=== PATIENT | male | born 1945 | race Caucasian/White ===

== ENCOUNTER 2019-06-28 16:31 | Inpatient (IN) ==
[2019-06-28 17:19] LABS: BASO# 0.06 X1000 (0.0-0.2); BASO% 0.9 % (0.0-0.8); EOS# 0.23 X1000 (0.0-0.7); EOS% 3.3 % (0.0-10.0); HEMATOCRIT 33.2 % (42.0-52.0); HEMOGLOBIN 11.3 g/dL (14.0-18.0); IMM GRAN# 0.02 X1000 (0.0-0.04); IMM GRAN% 0.3 % (0.0-0.5); LYMPH# 1.53 X1000 (1.2-3.4); MCH 29.7 PG (27-31); MCV 87.4 FL (81-99); MONO% 10.1 % (1.7-9.3); MPV 9.9 FL (7.4-10.4); NEUT# 4.42 X1000 (1.4-6.5); NEUT% 63.4 % (42.2-75.2); PLT 188 X1000 (130-400); RDW 14.6 % (11.5-14.5); WBC 6.96 X1000 (4.8-10.8)
[2019-06-28] MEDS ORDERED: SODIUM BICARBONATE 8.4% IV ONE (18:35)
[2019-06-28] MEDS ORDERED: NS 1,000 ML IV ONE (18:35)
[2019-06-28] MEDS ORDERED: HUMULIN R IV ONE ×2 (18:35→23:05)
[2019-06-28] MEDS ORDERED: D50W SYRINGE IV ONE ×2 (18:35→23:05)
[2019-06-28 18:37] LABS: ALB/GLOB RATIO 1.5; ALBUMIN 4.7 g/dL (3.5-5.0); CALCIUM 10.1 mg/dL (8.8-10.2); CREATININE 2.6 mg/dL (0.7-1.2); POTASSIUM 6.9 mmol/L (3.5-5.1); TOTAL BILIRUBIN 0.39 mg/dL (0.20-1.00); TOTAL PROTEIN 7.9 g/dL (6.3-8.3)
[2019-06-28] MEDS ORDERED: ZOFRAN IV PRN (18:51)
--- NOTE | 2019-06-28 18:52 | PROVIDER DOCUMENTATION ---
This chart was entered by Tona Torres Scribe, acting as scribe for Tyron Ornelas MD. HPI-General Adult - General Chief Complaint: Abnormal Lab[s] Stated Complaint: HIGH POTASSIUM Time Seen by Provider: 06/28/19 17:19 Source: patient Allergies/Adverse Reactions: Patient Allergies Allergy/AdvReac Type Severity Reaction Status Date / Time No Known Allergies Allergy Verified 06/28/19 21:27 Home Medications: Home Medication List Medication Instructions Recorded Confirmed Last Taken Type Carvedilol 12.5 mg PO BID 03/16/18 06/28/19 06/28/19 09:00 History Simvastatin 40 mg PO QHS 03/16/18 06/28/19 06/27/19 21:00 History Hydromorphone [Dilaudid] 1 mg PO Q3H PRN PRN #12 tab 01/19/19 06/28/19 Unknown Rx Warfarin [Coumadin] 4 mg PO QHS 06/28/19 06/28/19 06/27/19 21:00 History - History of Present Illness -Gen Adult Nature of Presenting Problems: 74yom presents to ED cc potassium of 7.1 at PCP today and N/V on Thursday and diarrhea for 5 days. Pt denies fever, chest pain or SOB. Pt has hx of HTN, DM and has a pacemaker. Pt is afebrile and in no apparent distress upon exam. Location of Pain/Injury: reports: generalized Quality of Pain: reports: none Onset/Duration: reports: 5 days ago Timing: reports: still present Context/Activities at Onset: reports: light activity Modifying Factors: improves with: nothing Associated Symptoms: reports: diarrhea, fatigue, malaise, muscle aches, weakness , trouble walking. denies: chest pain, fever/chills, shortness of breath Similar Symptoms Previously?: Yes Recently seen or treated by another doctor?: Yes (seen at PCP today) Review of Systems - Adult - REVIEW OF SYSTEMS - ADULT Constitutional: reports: see tim MANZANARES. denies: chills, fever Eyes: reports: no symptoms reported Ears, Nose, Mouth & Throat: reports: no symptoms reported Cardiovascular: reports: see HPI, other (potassium of 7.1 at PCP today). denies: chest pain Respiratory: reports: see HPI. denies: shortness of breath Gastrointestinal: reports: see HPI, diarrhea, nausea, vomiting. denies: abdominal pain Genitourinary: reports: no symptoms reported Musculoskeletal: reports: no symptoms reported Integumentary: reports: no symptoms reported Neurological: reports: no symptoms reported Psychiatric: reports: no symptoms reported Endocrine: reports: no symptoms reported Hematologic/Lymphatic: reports: no symptoms reported Allergic/Immunologic: reports: no symptoms reported All Other Systems: Reviewed and Negative Past History - Adult - PAST MEDICAL HISTORY-ADULT Review of Records: reports: Nursing Assessment Review, Medications Reviewed, Social history reviewed & non-contributory. Major Childhood Illnesses: reports: denies history Cardiovascular: reports: cardiac disease, HTN, hyperlipidemia Respiratory: reports: denies history Gastrointestinal: reports: denies history Obstetrical/Gynecological: reports: denies history Genitourinary: reports: kidney disease Musculoskeletal: reports: denies history Neurological: reports: denies history Endocrine/Immune: reports: anemia, Diabetes Other Conditions: reports: denies history - PRIOR SURGERIES/PROCEDURES Surgical/Procedure History: reports: cholecystectomy, pacemaker, orthopedic (extremity), other (MVP) - IMMUNIZATION STATUS Childhood Immunizations: See Nurse Assessment Flu Vaccine: See Nurse Assessment - FAMILY HISTORY Family History: reviewed, not pertinent Physical Exam-General - PHYSICAL EXAM-ADULT Initial Vital Signs Reviewed: Yes - CONSTITUTIONAL General Appearance: appears well, alert, no apparent distress. negative: anxious, combative - EYES Eyes: PERRL/EOMI, pink conjunctivae. negative: photophobia - HEAD, EARS, NOSE, MOUTH & THROAT HENMT: normocephalic/atraumatic, moist mucous membranes. negative: angioedema - RESPIRATORY Respiratory: chest non-tender, lungs clear, normal breath sounds. negative: wheezing - CARDIOVASCULAR Cardiovascular: normal peripheral pulses, regular rate, rhythm. negative: bradycardia, tachycardia - GASTROINTESTINAL (ABDOMEN) Abdominal Exam: normal bowel sounds, non tender, soft. negative: tenderness - MUSCULOSKELETAL Extremity: swelling (trace-1+ BILATERAL LE). negative: deformity - SKIN Integumentary: warm/dry. negative: diaphoresis, jaundice - PSYCHIATRIC Psych/Mental Status: normal mood/affect, oriented x 3. negative: anxious, disheveled Progress - PLAN OF CARE/RESULTS Progress/Plan/Lab Results: Vital Signs - 8 hr 06/28/19 16:38 Temperature 98.0 F Pulse Rate 91 H Respiratory Rate 20 Blood Pressure 116/70 O2 Sat by Pulse Oximetry 99 Laboratory Results - last 24 hr 06/28/19 16:42 WBC 6.96 RBC 3.80 L Hgb 11.3 L Hct 33.2 L MCV 87.4 MCH 29.7 MCHC 34.0 RDW Std Deviation 14.6 H Plt Count 188 MPV 9.9 Immature Gran % (Auto) 0.3 Neut % (Auto) 63.4 Lymph % (Auto) 22.0 Yell % (Auto) 10.1 H Eos % (Auto) 3.3 Baso % (Auto) 0.9 H Immature Gran # (Auto) 0.02 Neut # (Auto) 4.42 Lymph # (Auto) 1.53 Yell # (Auto) 0.70 H Eos # (Auto) 0.23 Baso # (Auto) 0.06 Orders Category Date Time Status CBC WITH DIFF [HEME] Stat Lab 06/28/19 16:42 Completed COMPREHENSIVE METABOLIC PANEL [CHEM] Stat Lab 06/28/19 16:42 Received Result Diagrams: 06/29/19 03:30 06/29/19 03:30 - EKG 1 Time of EKG reading by physician:: 17:19 EKG Read and Signed by:: Tyron Ornelas EKG Interpretation (*Must complete 3 of following elements*): Abnormal Rate: 73 Rhythm: Ventricular paced rhythm QRS: PVC's (occasional) ST Wave: normal - CONSULTS/PCP/HOSPITALIST Notification #1 *Consult/PCP/Hospitalist*: penot Time Discussed: 18:41 Consult Disposition: Admit Departure - Departure Date of Disposition Decision: 06/28/19 Time of Disposition Decision: 18:43 DIAGNOSIS: Acute hyperkalemia, Elevated BUN Disposition: ADMITTED INPATIENT 09 Certified Medical Emergency: Emergent Condition: Stable - Critical Care Note This patient required my direct & personal management of CC.: No Attestation - Physician/ BRIDGETTE Attestation Patient care was provided by Advanced Practice Provider:: No The physician spent face to face time with patient:: Yes Advanced Practice Provider documentation review:: Supervising physician onsite and consulted in the evaluation and care of this patient. The physician did have a face to face encounter with the patient. This chart was documented by the perez souzaibe, (Tona Torres Scribe) and accurately reflects the services I performed and decisions made by me, Tyron Ornelas MD, as attested by the provider's signature.
[2019-06-28] MEDS ORDERED: CALCIUM GLUCONATE 1 GM in NS 100 ML IV ONE (18:53)
[2019-06-28] MEDS ORDERED: ALBUTEROL 0.5% INH CONC FOR HYPERKALEMIA INH ONE ×3 (18:57→23:03)
[2019-06-28] MEDS ORDERED: CALCIUM GLUCONATE 1 GM in NS 50 ML IV ONE ×2 (19:01→23:05)
[2019-06-28] MEDS: NS 1,000 ML IV SCH (20:12)
[2019-06-28] MEDS: LOKELMA POWDER PACKET PO SCH (20:21)
[2019-06-28 20:41] LABS: INR 3.61; PROTIME 37.1 Seconds (11.0-16.0)
[2019-06-28] MEDS ORDERED: DILAUDID IV PRN (22:05)
[2019-06-28] MEDS: HUMALOG SUBQ SCH (22:21)
[2019-06-28 22:58] LABS: ALBUMIN 4.1 g/dL (3.5-5.0); CALCIUM 9.9 mg/dL (8.8-10.2); CREATININE 2.3 mg/dL (0.7-1.2); PHOSPHORUS 4.3 mg/dL (2.7-4.5)
[2019-06-28 22:59] LABS: POTASSIUM 6.3 mmol/L (3.5-5.1)
[2019-06-28] MEDS ORDERED: COUMADIN PO SCH (23:00)
[2019-06-28] MEDS ORDERED: LOKELMA POWDER PACKET PO ONE (23:00)
[2019-06-28] MEDS ORDERED: SODIUM BICARBONATE 8.4% IV PUSH ONE (23:06)
[2019-06-28] MEDS: COREG PO SCH (23:43)
[2019-06-29 04:11] LABS: BASO# 0.01 X1000 (0.0-0.2); BASO% 0.2 % (0.0-0.8); EOS# 0.12 X1000 (0.0-0.7); EOS% 2.4 % (0.0-10.0); HEMATOCRIT 28.7 % (42.0-52.0); HEMOGLOBIN 9.6 g/dL (14.0-18.0); LYMPH# 0.87 X1000 (1.2-3.4); LYMPH% 17.4 % (20.5-51.1); MCH 29.2 PG (27-31); MCHC 33.4 g/dL (33-37); MCV 87.2 FL (81-99); MPV 9.7 FL (7.4-10.4); PLT 111 X1000 (130-400); RBC 3.29 XMIL (4.7-6.1); RDW 14.5 % (11.5-14.5)
[2019-06-29 04:12] LABS: INR 3.86; PROTIME 39.2 Seconds (11.0-16.0)
[2019-06-29 04:34] LABS: HEMOGLOBIN A1C 6.2 % (4.8-6.0)
[2019-06-29 04:38] LABS: ALBUMIN 3.8 g/dL (3.5-5.0); CALCIUM 9.8 mg/dL (8.8-10.2); CREATININE 2.3 mg/dL (0.7-1.2); POTASSIUM 5.3 mmol/L (3.5-5.1)
[2019-06-29] MEDS: NS 1,000 ML IV SCH (04:47)
[2019-06-29] MEDS: HUMALOG SUBQ SCH (06:21)
--- NOTE | 2019-06-29 08:30 | EKG Report ---
Test Performed on : 06/28/2019 4:50:23 PM Test Reason : ED. NO EKG ORDER FOR MUSE Blood Pressure : / mmHG Vent. Rate : 073 BPM Atrial Rate : 079 BPM P-R Int : 000 ms QRS Dur : 174 ms QT Int : 446 ms P-R-T Axes : 000 -86 056 degrees QTc Int : 491 ms Ventricular-paced rhythm with occasional premature ventricular complexes. Abnormal ECG When compared with ECG of 19-JAN-2019 11:12, Electronic ventricular pacemaker has replaced Wide QRS rhythm. Unconfirmed Result
[2019-06-29] MEDS: LOKELMA POWDER PACKET PO SCH (09:04)
[2019-06-29] MEDS: COREG PO SCH (09:04)
[2019-06-29 10:05] VITALS: BP 115/59
--- NOTE | 2019-06-29 16:43 | NEPHROLOGY CONSULTATION ---
DATE: 06/29/2019 REASON FOR ADMISSION: Abnormal labs. TIME SEEN: 0705. CONSULTING PHYSICIAN: Dr. Stewart per PREET Singer. REASON FOR CONSULTATION: Hyperkalemia with chronic kidney disease stage 3B/4. HISTORY OF PRESENT ILLNESS: Mr. Garg is a 74-year-old white male with a known history of heart disease, diabetes mellitus type 2, cirrhosis of the liver, and chronic atrial fibrillation with anticoagulation. The patient is followed by Dr. Razo. He had labs drawn yesterday a.m. He was requested to come back into her office for repeat labs. He presented to the [facility] emergency room. Potassium was down to 6.9 from 7.1. Creatinine was found to be 2.6 with a noted baseline of 1.9 to 2.1 in 2018. Due to these findings, patient was admitted to the ICU for further monitoring and evaluation. He was bolused with 1 L of normal saline. Continues with normal saline at 125 mL an hour. He was given 3 rounds of D50, insulin and calcium gluconate with sodium bicarbonate and a dose of Lokelma by primary care. The patient's potassium this a.m. is 5.3. BUN is now at 97 with a creatinine of 2.3. The patient admits that for the last week he has had nausea, vomiting, and diarrhea. He had continued to take his oral medications as prescribed. Unable to the eat except minimal amount of liquids per intake. He denies chest pain. No increased work of breathing. States his nausea has improved. He has slight abdominal discomfort from retching. Denies any lower extremity swelling. No recent falls. No fever or chills. PAST MEDICAL HISTORY: Chronic kidney disease stage 3B, baseline creatinine 1.9 to 2.8 since 2018, cirrhosis of the liver, coronary artery disease with coronary artery bypass graft, hypertension, diabetes mellitus type 2, atrial fibrillation, paroxysmal, chronic anemia due to chronic disease, followed by Dr. Cary, vitamin D deficiency, pacemaker, prosthetic mechanical heart valve, mitral, followed by Cardiology. PAST SURGICAL HISTORY: Coronary artery bypass graft, mechanical mitral valve replacement, pacemaker replacement. SOCIAL HISTORY: Lives with his family. States he quit smoking in 1975. Denies alcohol or illicit drug use currently. ALLERGIES: No known drug allergies listed. HOME MEDICATIONS: Furosemide 40 mg b.i.d., carvedilol 12.5 mg b.i.d., lisinopril 5 mg daily, simvastatin 40 mg p.o. at bedtime, Dilaudid tablet 2 mg q.3 to 4 hours p.r.n., Coumadin 4 mg p.o. at bedtime, followed by Cardiology. REVIEW OF SYSTEMS: Times 10 with pertinent positives listed above in the HPI. VITAL SIGNS: Most recent, temperature 97 degrees, blood pressure 100/48, heart rate 70, respirations 21. He is currently on room air. Last recorded saturation 98%. Patient has had 1645 in, 550 mL out to void. LABS: Sodium is 136, potassium 5.3, chloride 110, CO2 15, BUN 97, creatinine is 2.3, glucose 86, calcium 9.8, phosphorus 5, albumin 3.8, anion gap of 11. White count 5, hemoglobin 9.6, hematocrit 28.7, with a platelet count of 111,000. PHYSICAL EXAMINATION: General: This is a 74-year-old white male resting quietly in bed. He appears chronically ill, no acute distress. Skin: Warm and dry. HEENT: Normocephalic, atraumatic. Conjunctiva is pale. He has SETH. Mucous membranes are moist. He has poor dentition. Neck: Supple. Trachea midline. No evidence of JVD. Cardiovascular: Regular rate and rhythm. No murmur or gallop appreciated. Lungs: Clear to auscultation bilaterally. Equal excursion. He is on room air. Abdomen: Slightly distended. Positive bowel sounds are present. Genitourinary: Not inspected. Patient has been voiding. Adequate amount documented. Extremities: Have no edema. No clubbing or cyanosis. Neurological: He is alert and oriented x3. Able to move all extremities well. ASSESSMENT AND PLAN: 1. Chronic kidney disease stage 3B. Acute kidney injury on CKD stage 3 secondary to volume depletion in the context of an ROXANNE inhibitor. Patient's baseline creatinine is 1.9 to 2.1. His creatinine is stable at 2.3 over the last 24 hours. He continues on IV fluids of normal saline at 125 mL an hour. His potassium and lisinopril have been appropriately held. We will check urine electrolytes and a renal ultrasound. No plans for intervention. 2. Electrolytes. These are acceptable. 3. Acid-base balance. The patient has metabolic acidosis more than likely secondary to nausea and vomiting for approximately 1 week. We will continue to monitor. May require sodium bicarbonate if not corrected in the next several days. 4. Anemia. This is low but stable. Followed by Dr. Cary. No indications for intervention. 5. History of atrial fibrillation. He is currently on telemetry. This is to be followed by the primary care. 6. Nausea and vomiting. This has resolved with fluid volume resuscitation. Followed by the primary care. I would like to thank you for allowing us to follow with this patient. Dictated by PREET Mcmahon for Servando Rodriguez MD Face to face encounter, data reviewed, discussed with Yandel Leslie on 06/29/19. I agree with the above assessment and plan of care. cc: PREET Mcmahon MD [facility]
[2019-06-29] MEDS ORDERED: ZOCOR PO SCH (21:00)
--- NOTE | 2019-06-30 09:43 | HISTORY AND PHYSICAL ---
CHIEF COMPLAINT: Abnormal labs. HISTORY OF PRESENT ILLNESS: This is a 74-year-old gentleman with a history of cirrhosis of the liver; chronic kidney disease; coronary artery disease, status post coronary artery bypass graft; diabetes mellitus type 2; atrial fibrillation. He presented to the emergency room after being called by his primary care provider, DR. Razo. He stated that he had labs drawn this morning. She called and told him that his potassium was 7 and he needed to come back for evaluation. Labs were repeated in the emergency room and his potassium was 6.9, with a creatinine of 2.6, although his baseline creatinine is 2.1 to 2.4. PAST MEDICAL HISTORY: 1. Chronic kidney disease. 2. Cirrhosis of the liver. 3. CAD, status post coronary artery bypass graft. 4. Hypertension. 5. Diabetes mellitus type 2. 6. Atrial fibrillation, paroxysmal. 7. Chronic anemia, followed by Dr. Cary. 8. Vitamin D deficiency. 9. Pacemaker. 10. Prosthetic heart valve. PAST SURGICAL HISTORY: Coronary artery bypass graft, valve replacement, pacemaker placement. SOCIAL HISTORY: He quit smoking in 1975. He denies any alcohol or illicit drug use. ALLERGIES: No known drug allergies. HOME MEDICATIONS: A list will be obtained by the nursing staff, and once verified we will review and restart as appropriate. REVIEW OF SYSTEMS: Discussed with the patient, with pertinent positives stated in the HPI. He denied any syncope, dizziness, chest pain, palpitations or any shortness of breath, cough, fever, chills, nausea, vomiting, diarrhea, constipation, black or bloody vomitus or stools, hematuria, dysuria, frequency or urgency. PHYSICAL EXAMINATION: GENERAL: This is a 74-year-old gentleman who is sitting up in the chair in no distress. VITAL SIGNS: Blood pressure is 116/70 with a heart rate of 91, respirations are 20, temperature is 98 degrees, with room air saturations 99%. HEENT: Head is normocephalic, atraumatic. Mucous membranes are moist. NECK: Supple, with trachea midline. CARDIOVASCULAR: Regular rate and rhythm. Paced rhythm. S1 and S2 appreciated. PULMONARY: Breath sounds are clear, with no increased work of breathing noted. Chest rises and falls symmetrically with respiration. GASTROINTESTINAL: Abdomen is soft, nontender, nondistended. Bowel sounds in all 4 quadrants. NEUROLOGIC: He is alert and oriented x3. SKIN: Warm and dry. LABORATORY DATA: WBC is 6.9, with hemoglobin 11.3, hematocrit 33.2, platelets of 188,000. Sodium 135, potassium 6.9, BUN 105, creatinine 2.6 with a glucose of 101. DIAGNOSTIC DATA: EKG reveals a paced rhythm at a rate of 73. 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 ASSESSMENT AND PLAN: 1. Hyperkalemia. The patient was given D50, 10 units of insulin and sodium bicarbonate in the emergency room. We will add calcium gluconate as well as 25 mg albuterol nebulizer and Lokelma 10 g. Continue intravenous hydration of saline at 125 an hour. Repeat a renal profile at 11:00 as well as repeat Lokelma g at 11:00. We will check a daily renal profile. 2. Chronic kidney disease. It looks like a baseline creatinine has been 2.1 to 2.4. We will renal-dose medications, hold any renal toxic medications, and repeat labs tonight and in the morning. 3. Diabetes mellitus type 2. He will be placed on pattern blood glucose with sliding scale insulin. 4. History of atrial fibrillation. He will be placed on telemetry. 5. Mechanical mitral valve, on chronic anticoagulation. We will check a stat PT and INR along with daily PT/INR once his warfarin dose is verified. We will continue keeping INR at a target of 2.5 to 3. 6. Hypertension. We will identify his home medications and continue as appropriate. 7. History of cirrhosis of the liver. Aware. 8. For deep venous thrombosis prophylaxis, of course is Coumadin. 9. Gastrointestinal prophylaxis. Prilosec. Further treatments pending hospital course. Dictated by PREET Rodriguez for Eb Stewart MD cc: PREET Rodriguez MD
--- NOTE | 2019-07-01 14:20 | DISCHARGE SUMMARY ---
ADMISSION DATE: 06/28/2019 DISCHARGE DATE: 06/29/2019 DIAGNOSES: 1. Hyperkalemia, resolved. 2. Chronic kidney disease stage IIIB with a baseline creatinine of 1.9 to 2.8. 3. Cirrhosis of the liver. 4. Diabetes mellitus type 2. 5. History of atrial fibrillation. 6. Mechanical mitral valve. 7. Hypertension. 8. Anemia, chronic, which is followed by Dr. Cary. 9. Metabolic acidosis secondary to nausea and vomiting, resolved. CONSULTANTS: Dr. Servando Rodriguez. HOSPITAL COURSE: Mr. Garg presented to the emergency room after being called by his primary care physician stating that he had abnormal labs drawn in the office earlier in the week. He reportedly had a potassium of 7.1. Repeat potassium in the ER on the was 6.9. He was admitted to ICU for close monitoring and of course placed on telemetry. He was treated initially with IV hydration as well as albuterol neb, Lokelma, calcium gluconate, D50, insulin and sodium bicarbonate with repeat Lokelma 4 hours later. Potassium did decrease to 5.3. Thankfully, he is ready to be discharged. DISCHARGE VITAL SIGNS: Blood pressure is 115/59, heart rate of 70, respirations are 22, temperature 97.5 degrees with O2 saturations 98 to 100 percent on room air. DISCHARGE PHYSICAL EXAMINATION: Cardiovascular: Regular rate and rhythm. S1 and S2 are appreciated. He has no JVD. Pulmonary: Breath sounds are clear with no increased work of breathing noted. Gastrointestinal: Abdomen is soft, nontender, nondistended. Bowel sounds in all 4 quadrants. : He has no CVA or suprapubic tenderness. Extremities: No clubbing, cyanosis, or edema. Neurologic: He is alert and oriented x3. DISCHARGE MEDICATIONS: 1. Coumadin 4 mg take as directed. 2. Simvastatin 40 mg p.o. at bedtime. 3. Carvedilol 12.5 mg p.o. b.i.d. 4. Dilaudid as directed. FOLLOW-UP: Dr. Razo. He needs to call in the morning to schedule an appointment within the next week. At that time he needs to have a BMP drawn to reassess his electrolytes and renal function. He has been instructed to call to be seen sooner or return to the emergency room for any syncope, dizziness, chest pain, palpitations, any shortness of breath, cough, fever, chills, night sweats, any nausea, vomiting, diarrhea, constipation, black or bloody vomitus or stools, hematuria, dysuria, frequency, urgency, or for any questions or concerns that he may have. He is being discharged home in stable condition with family members. TIME SPENT: This is a greater than 30 minute discharge. Dictated by PREET Rodriguez for Sarkis Sylvester MD cc: PREET Rodriguez MD
== END 2019-06-29 12:55 | disposition home or self-care (01) | DRG 641 ==
LOC: ED 16:31 → ICU 19:34 → SUATTDRO 19:34
PROVIDERS: ATTEND Internal Medicine